=== PATIENT | male | born 1945 | race Caucasian/White ===

== ENCOUNTER 2018-04-19 14:36 | Outpatient (CLI) | payer MEDICARE ==
--- NOTE | 2018-04-20 11:24 | Ultrasound Report ---
Reason: LOCALIZED SWELLING, MASS LUMP HEAD Procedure Date: 04/19/2018 Accession Number: [id number] / [id number] Procedure: US - Head or Neck Soft Tissue CPT Code: FULL RESULT: EXAM: NECK ULTRASOUND EXAM DATE: 04/19/2018 03:22 PM. CLINICAL HISTORY: Localized swelling, mass lump head. COMPARISON: None. TECHNIQUE: Real-time sonographic imaging was performed by the lithographic plate maker utilizing color-flow. Multiple branch customer service representative static images were saved for review. FINDINGS: Palpable soft tissue abnormality posterior to right ear is noted with elongated appearance. This lesion measures 4.8 cm transverse by 4.4 cm craniocaudal. The AP dimension either measures 1.3 or 2.6 cm. Bulldogger measured AP dimension as 2.6 cm; however, there is a bright echogenic band that could create mirror image artifact, falsely doubling AP dimension. IMPRESSION: 1. 4.8 cm heterogeneous solid soft tissue lesion corresponds to palpable abnormality posterior to right ear. The AP dimension of lesion either measures 2.6 cm; or 1.3 cm with mirror image artifact. Appearance is not typical for a simple cyst. Question lipoma or other soft tissue mass. Consider further characterization with CT or MRI versus tissue sampling. RADIA
== END 2018-04-19 14:37 | disposition home or self-care (01) ==
LOC: DI 14:36
PROVIDERS: ATTEND Nurse Practitioner Family
DX: R22.0 Localized swelling, mass and lump, head (principal)
CPT/HCPCS: 76536

== ENCOUNTER 2018-05-04 11:00 | Outpatient (CLI) | payer MEDICARE ==
--- NOTE | 2018-05-04 16:49 | CT Report ---
Reason: LOCALIZED SWELLING,MASS AND LUMP HEAD Procedure Date: 05/04/2018 Accession Number: [id number] / [id number] Procedure: CT - Head W/O CPT Code: FULL RESULT: EXAM: CT HEAD EXAM DATE: 05/04/2018 11:41 AM. CLINICAL HISTORY: Localized swelling, mass and lump on head. COMPARISON: HEAD OR NECK SOFT TISSUE 04/19/2018 3:06 PM. TECHNIQUE: Multiaxial CT images were obtained from the foramen magnum to the vertex. Reformats: Sagittal and coronal. IV contrast: None. In accordance with CT protocol optimization, one or more of the following dose reduction techniques were utilized for this exam: automated exposure control, adjustment of mA and/or KV based on patient size, or use of iterative reconstructive technique. FINDINGS: Parenchyma: No intraparenchymal hemorrhage. No evidence of mass, midline shift, or CT findings of infarction. Georges-white differentiation is distinct. Extraaxial Spaces: Normal for age. No subdural or epidural collections identified. Ventricles: Normal in size and position. Sinuses and Orbits: Imaged paranasal sinuses, orbits, and mastoids show no significant abnormality. Bones: No evidence of fracture or calvarial defect. Other: There is a well-circumscribed fat density mass of the right posterior scalp measuring 37 x 32 x 14 mm (AP by SI by Mediolateral), corresponding to the clinical finding and recent findings at ultrasound. Mass is homogeneously comprised of low density fat consistent with simple lipoma. IMPRESSION: 1. Right scalp lipoma corresponds to the palpable area of concern and recent ultrasound finding. 2. Otherwise normal head CT. RADIA
== END 2018-05-04 11:01 | disposition home or self-care (01) ==
LOC: DI 11:00
PROVIDERS: ATTEND Nurse Practitioner Family
DX: D17.0 Benign lipomatous neoplasm of skin and subcutaneous tissue of head, face and neck (principal)
CPT/HCPCS: 70450

== ENCOUNTER 2019-06-19 14:54 | Outpatient (CLI) | payer MEDICARE ==
--- NOTE | 2019-06-20 11:30 | XRAY Report ---
Reason: CHONDROCOSTA JUNCTION SYNDROME, TIETZE Procedure Date: 06/19/2019 Accession Number: [id number] / [id number] Procedure: XRS - Ribs w/PA Chest LT CPT Code: Final Report FULL RESULT: EXAM: LEFT RIB RADIOGRAPHY EXAM DATE: 06/19/2019 03:15 PM. CLINICAL HISTORY: CHONDROCOSTA JUNCTION SYNDROME, TUCKERE. COMPARISON: None. TECHNIQUE: 1 view of the chest and 2 views of the ribs. FINDINGS: Bones: Normal. No fracture or bone lesion. Lungs: No focal opacities. No pneumothorax. No pleural effusions. Mediastinum: Heart and mediastinal contours are unremarkable. Other: None. IMPRESSION: Normal chest and rib radiography. RADIA
== END 2019-06-19 14:55 | disposition home or self-care (01) ==
LOC: DI.S 14:54
PROVIDERS: ATTEND Nurse Practitioner Family
DX: M94.0 Chondrocostal junction syndrome [Tietze] (principal)

== ENCOUNTER 2020-06-05 08:49 | Outpatient (CLI) | payer MEDICARE ==
[2020-06-05 16:20] LABS: PT - PROTHROMBIN TIME 11.7 secs (9.9-12.6)
[2020-06-05 16:48] LABS: ALBUMIN 4.3 g/dL (3.2-5.5); ALBUMIN/GLOBULIN RATIO 1.5 (1.0-2.2); BILIRUBIN,TOTAL 1.2 mg/dL (0.2-1.0); CALCIUM 9.5 mg/dL (8.5-10.3); CREATININE 0.9 mg/dL (0.6-1.2); TOTAL PROTEIN 7.1 g/dL (6.7-8.2)
[2020-06-05 16:51] LABS: PARTIAL THROMBOPLASTIN TIME 26.6 secs (24.9-33.3)
[2020-06-05 19:16] LABS: HEMOGLOBIN A1c% 6.7 % (4.27-6.07)
== END 2020-06-05 08:50 | disposition home or self-care (01) ==
LOC: LAB.S 08:49
DX: R73.09 Other abnormal glucose (principal); R74.01 Elevation of levels of liver transaminase levels
CPT/HCPCS: 36415; 80053; 83036; 85610; 85730

== ENCOUNTER 2021-08-27 11:32 | Outpatient (CLI) | payer MEDICARE ==
[2021-08-27 15:26] LABS: AMYLASE 59 U/L (28-100); LIPASE 39 U/L (22-51)
== END 2021-08-27 11:33 | disposition home or self-care (01) ==
LOC: LAB.S 11:32
PROVIDERS: ATTEND Family Medicine
DX: K52.9 Noninfective gastroenteritis and colitis, unspecified (principal)
CPT/HCPCS: 36415; 81599; 82150; 82784; 83516; 83690; 84443; 86255

== ENCOUNTER 2021-08-29 11:14 | Outpatient (CLI) | payer MEDICARE ==
[2021-09-05 09:46] LABS: COLLECTION DURATION RANDOM h; TOTAL SPECIMEN WEIGHT 9 g
== END 2021-08-29 11:15 | disposition home or self-care (01) ==
LOC: LAB.S 11:14
PROVIDERS: ATTEND Family Medicine
DX: K52.9 Noninfective gastroenteritis and colitis, unspecified (principal)
CPT/HCPCS: 81599; 82710; 82784; 83516; 83630; 83993; 86255; 87045; 87177; 87209; 87329; 87427; 87449; 87493

== ENCOUNTER 2022-03-27 09:41 | Outpatient (CLI) | payer MEDICARE ==
--- NOTE | 2022-03-27 16:09 | DEXA Report ---
PROCEDURE: Dexa Spine and/or Hip INDICATIONS: SCREENING FOR OSTEOPOROSIS TECHNIQUE: Dual energy x-ray absorptiometry (DXA) was performed on a [employer] System. Regions measur ed are the AP Spine, femoral neck, and if needed forearm. COMPARISON: None. FINDINGS: Lumbar Spine: Bone Mineral Density 1.260 g/cm/cm,T score 0.4. Left Hip: Bone Mineral Density 1.017 g/cm/cm,T score -0.6. Left Femoral Neck: Bone Mineral Density 0.910 g/cm/cm, T score -1.2. (T score greater or equal to -1.0: NORMAL) (T score from -1.1 to -2.4: OSTEOPENIA) (T score less than or equal to -2.5 to: OSTEOPOROSIS) Impression: Osteopenia. Patients with diagnosis of osteoporosis or osteopenia should have regular bone mineral density assess ment. For those eligible for Medicare, routine testing is allowed once every 2 years. Testing frequ ency can be increased for patients who have rapidly progressing disease or for those who are receivin g medical therapy to restore bone mass. Reviewed by: Sj Salgado MD on 03/27/2022 4:08 PM PST Approved by: Sj Salgado MD on 03/27/2022 4:08 PM PST Station ID: [id number]
== END 2022-03-27 09:42 | disposition home or self-care (01) ==
LOC: DI 09:41
PROVIDERS: ATTEND Family Medicine
DX: Z13.820 Encounter for screening for osteoporosis (principal); M85.80 Other specified disorders of bone density and structure, unspecified site

== ENCOUNTER 2023-08-22 04:58 | Emergency (ER) | payer MEDICARE ==
--- NOTE | 2023-08-22 05:09 | ED Physician Documentation ---
PD HPI ABD PAIN - Stated complaint Stated Complaint: RT SIDE PX - Chief complaint Chief Complaint: Abd Pain - History obtained from History obtained from: Patient - Additional information Additional information: HPI from patient. Patient called planes of right-sided abdominal pain, more pronounced in the right upper than lower quadrant. This pain was of gradual onset approximately 3 days ago without inciting event. There are no exacerbating nor ameliorating factors. He denies nausea, vomiting, fever. The only similar pains he had had in the past were associated with gallstones, but his gallbladder has since been removed. The pain is constant and steadily worsening since onset three days ago. Review of Systems Constitutional: denies: Fever, Chills, Sweats GI: reports: Abdominal Pain. denies: Nausea, Vomiting, Constipation, Diarrhea PD PAST MEDICAL HISTORY - Past Medical History Cardiovascular: Hypertension, High cholesterol - Past Surgical History General: Cholecystectomy, Colonoscopy - Present Medications Home Medications: Ambulatory Orders Medication Instructions Recorded Confirmed Ezetimibe [Zetia] 10 mg PO DAILY 10/17/21 08/22/23 Losartan Potassium [Cozaar] 100 mg PO DAILY 10/17/21 08/22/23 Pantoprazole [Protonix] 40 mg PO DAILY 10/17/21 08/22/23 allopurinoL [Zyloprim] 100 mg PO DAILY 10/17/21 08/22/23 Amlodipine Besylate [Norvasc] 2.5 mg PO DAILY 08/22/23 08/22/23 Cyanocobalamin [Vitamin B-12] 500 mcg PO DAILY 08/22/23 08/22/23 Metoprolol Tartrate [Lopressor] 100 mg PO BID 08/22/23 08/22/23 Multivitamin 1 each PO DAILY 08/22/23 08/22/23 Ondansetron Odt [Zofran Odt] 4 mg TL Q6H PRN #14 tablet 08/22/23 Pravastatin [Pravachol] 10 mg PO DAILY 08/22/23 08/22/23 hydroCHLOROthiazide [Hydrodiuril] 12.5 mg PO DAILY 08/22/23 08/22/23 traMADol [Ultram] 50 mg PO Q4-6H PRN #14 tablet 08/22/23 - Allergies Allergies/Adverse Reactions: Allergies Allergy/AdvReac Type Severity Reaction Status Date / Time acetaminophen [From Percocet] Allergy Severe paranoid Verified 08/22/23 05:10 oxycodone [From Percocet] Allergy Severe paranoid Verified 08/22/23 05:10 PD ED PE NORMAL - Vitals Vital signs reviewed: Yes - General General: Alert and oriented X 3, No acute distress, Well developed/nourished - Cardiac Cardiac: RRR, No murmur - Respiratory Respiratory: No respiratory distress, Clear bilaterally - Abdomen Abdomen: Soft, Non distended, Other (mild TTP RLQ without rebound or guarding) - Back Back: No CVA TTP - Derm Derm: No rash - Extremities Extremities: No edema Results - Vitals Vitals: Vital Signs - 24 hr 08/22/23 08/22/23 08/22/23 05:02 06:00 07:40 Temperature 36.4 C L 36.3 C L Heart Rate 53 L 54 L 54 L Respiratory 18 16 16 Rate Blood Pressure 147/71 H 133/88 H 125/78 O2 Saturation 98 97 97 Oxygen O2 Source Room air - Labs Labs: Laboratory Tests 08/22/23 08/22/23 08/22/23 05:25 05:25 06:32 WBC 5.7 RBC 4.36 L Hgb 13.8 L Hct 41.2 L MCV 94.5 H MCH 31.7 H MCHC 33.5 RDW 12.8 Plt Count 204 MPV 10.5 Neut # (Auto) 2.4 Lymph # (Auto) 2.5 Levy # (Auto) 0.6 Eos # (Auto) 0.2 Baso # (Auto) 0.0 Absolute Nucleated RBC 0.00 Nucleated RBC % 0.0 Sodium 135 Potassium 4.0 Chloride 101 Carbon Dioxide 27 Anion Gap 7.0 BUN 26 H Creatinine 1.0 Estimated GFR (MDRD) 72 L Glucose 136 H Calcium 9.9 Total Bilirubin 1.0 AST 32 ALT 31 Alkaline Phosphatase 64 Total Protein 7.4 Albumin 4.5 Globulin 2.9 Albumin/Globulin Ratio 1.6 Lipase 43 Urine Color YELLOW Urine Clarity CLEAR Urine pH 6.0 Ur Specific [place] <=1.005 Urine Protein NEGATIVE Urine Glucose (UA) NEGATIVE Urine Ketones NEGATIVE Urine Occult Blood NEGATIVE Urine Nitrite NEGATIVE Urine Bilirubin NEGATIVE Urine Urobilinogen 0.2 (NORMAL) Ur Leukocyte Esterase NEGATIVE Ur Microscopic Review NOT INDICATED Urine Culture Comments NOT INDICATED - Rads (name of study) CT A/P with IV contrast Relevant Findings:: Prelim report reviewed, See rad report PD Medical Decision Making - ED course Complexity details: reviewed results, re-evaluated patient, considered differential, d/w patient ED course: No concerning nor diagnostic findings on CBC, ER abdominal panel, UA. CT A/P has incidental findings but no findings to explain his abdominal pain and tenderness. Incidental findings include adrenal nodule, diverticulosis, hepatic steatosis, and lesion of bladder wall. Results d/w patient. He declined pain medication on initial evaluation but on reevaluation is requesting pain medication. He has multiple allergies including vicodin, and percocet although his listed and reported side effects of these medications is n/v. After further discussion I recommended tramadol; he is not familiar with this medication and is agreeable to rx for this. Prior to d/c he is given 4mg IV morphine and he reported good pain relief with this. He was also given 4mg IV zofran to prophylax against n/v. I have electronically submitted prescriptions for [facility] and [facility]et[facility] in [place]. Return precautions are reviewed prior to d/c. I emphasized the need for follow up with PCP not only to reevaluate his abdominal pain but also to discuss the finding of the bladder lesion on CT scan which might require urology follow up for cystoscopy Departure - Departure Disposition: 01 Home, Self Care Clinical Impression: Abdominal pain Qualifiers: Abdominal location: right lower quadrant Qualified Code(s): R10.31 - Right lower quadrant pain Condition: Good Instructions: ED Abdominal Pain Unkn Cause Male Prescriptions: traMADol [Ultram] 50 mg PO Q4-6H PRN #14 tablet PRN Reason: Pain 5-7 Ondansetron Odt [Zofran Odt] 4 mg TL Q6H PRN #14 tablet PRN Reason: Nausea / Vomiting Comments: There were no concerning nor diagnostic findings on tonight's tests, including the blood tests, urinalysis, and the CT scan of your abdomen and pelvis. There were a few incidental findings on the CT scan such as diverticulosis, enlarged prostate, and a small lesion in your bladder wall. None of the findings on the CT scan would explain your symptoms. Follow-up with your primary care provider, next available appointment, for reevaluation. Return to the emergency department if your symptoms worsen, or if you develop new/concerning signs/symptoms (such as fever, blood in the stool, pain that is not controlled by the prescribed pain medication). I have electronically submitted prescriptions for tramadol (narcotic/opiate pain medication) and ondansetron (antinausea medication) to the [facility] in [place]. Even though it is an incidental finding, the lesion of your bladder wall needs to be further evaluated; you can talk to your primary doctor about referral to a urologist for further testing (cystoscopy). I am prescribing a short course of narcotic pain medication for you. These are potentially dangerous and addictive medications that should be used carefully. These medications may constipate you. Take an fkrr-zke-icoylww stool softener (docusate) twice daily with plenty of water while taking these medications. If you go 24 hours without a bowel movement, take mwdb-yxy-exewhlo miralax, per package instructions. Do not drink or drive while taking these medications. If you received narcotic or sedating medications while in the emergency department, do not drive for 24 hours. Store this medication in a safe, secure place and out of reach of children. It is a violation of federal law to give or sell this medication to another person or to use in a manner other than prescribed. The ED will not refill narcotic prescriptions, including prescriptions lost or stolen. To dispose of unwanted medications: 1. [facility] at [address] in [place] has a medication drop box. They accept prescription medications (in pill form) Wednesday through Wednesday 9:00 a.m. to 5:00 p.m. 2. The [employer] accepts prescription medications (in pill form only) for disposal year round. Call for more information. 3. Contact the [facility] for the next [facility] sponsored prescription drug collection event. , [phone], or [phone]; Discharge Date/Time: 08/22/23 08:09
[2023-08-22 05:31] LABS: BASOPHILS % (AUTO) 0.7 %; EOSINOPHILS # (AUTO) 0.2 10^3/uL (0.0-0.7); EOSINOPHILS % (AUTO) 3.5 %; HCT - HEMATOCRIT 41.2 % (42.0-52.0); HGB - HEMOGLOBIN 13.8 g/dL (14.0-18.0); LYMPHOCYTES # (AUTO) 2.5 10^3/uL (1.5-3.5); LYMPHOCYTES % (AUTO) 43.6 %; MEAN CORPUSCULAR HEMOGLOBIN 31.7 pg (27.0-31.0); MEAN CORPUSCULAR HGB CONC 33.5 g/dL (32.0-36.0); MEAN CORPUSCULAR VOLUME 94.5 fL (80.0-94.0); MEAN PLATELET VOLUME 10.5 fL (7.4-11.4); MONOCYTES # (AUTO) 0.6 10^3/uL (0.0-1.0); MONOCYTES % (AUTO) 10.6 %; NEUTROPHILS # (AUTO) 2.4 10^3/uL (1.5-6.6); NEUTROPHILS % (AUTO) 41.4 %; PLT - PLATELET COUNT 204 10^3/uL (130-450); RED BLOOD COUNT 4.36 10^6/uL (4.70-6.10); RED CELL DISTRIBUTION WIDTH 12.8 % (12.0-15.0); WHITE BLOOD COUNT 5.7 x10^3/uL (4.8-10.8)
[2023-08-22 05:49] LABS: ALBUMIN 4.5 g/dL (3.2-5.5); ALBUMIN/GLOBULIN RATIO 1.6 (1.0-2.2); CALCIUM 9.9 mg/dL (8.5-10.3); TOTAL PROTEIN 7.4 g/dL (6.4-8.9)
[2023-08-22] MEDS ORDERED: iohexoL-300 100 ML VIAL ONE (06:05)
[2023-08-22 06:17] VITALS: O2SAT 97
[2023-08-22] MEDS: iohexoL-300 100 ML VIAL IVP ONE (06:38)
[2023-08-22 07:13] LABS: BILIRUBIN,URINE NEGATIVE (NEGATIVE); GLUCOSE, URINE (UA) NEGATIVE (NEGATIVE); KETONES,URINE (UA) NEGATIVE (NEGATIVE); LEUKOCYTE ESTERASE, URINE NEGATIVE (NEGATIVE); NITRITE,URINE NEGATIVE (NEGATIVE); OCCULT BLOOD,URINE NEGATIVE (NEGATIVE); PROTEIN,URINE NEGATIVE (NEGATIVE); UROBILINOGEN,URINE 0.2 (NORMAL) E.U./dL (NORMAL)
[2023-08-22 07:20] LABS: CLARITY,URINE CLEAR (CLEAR)
[2023-08-22 07:42] VITALS: BP 125/78
[2023-08-22] MEDS: ONDANSETRON 4 MG/2 ML VIAL IVP STA (07:49)
[2023-08-22] MEDS: MORPHINE 2 MG/ML CARPUJECT IVP STA (07:50)
--- NOTE | 2023-08-22 10:12 | CT Report ---
PROCEDURE: CT abdomen and pelvis with contrast INDICATIONS: abdominal pain TECHNIQUE: Helical axial CT of the abdomen and pelvis was obtained after intravenous contrast adminis tration and reformatted in multiple planes. Radiation dose reduction was achieved using automated exp osure control or adjustment of mA and/or kV according to patient size. COMPARISON: 01/31/2016 FINDINGS: Lower thorax: The lung bases are clear. Heart size normal. Dense coronary artery vascular calcificat ions No hiatal hernia. Moderate fecal debris throughout the colon. Liver: Hepatic parenchyma is diffusely decreased in attenuation without focal mass lesion. Biliary system: Cholecystectomy Pancreas: Unremarkable without mass or inflammation evident. Spleen: Normal in size and density. Adrenals: Small 1 cm left adrenal nodule is stable from prior exam Reproductive system: Prostate is enlarged Urinary system: Normal renal size and attenuation. No renal calculi, hydronephrosis, or solid mass p resent. Focal bladder wall thickening with enhancement noted near the dome of the bladder measuring approximate 2.0 x 0.3 cm Gastrointestinal system: The bowel appears unremarkable with no evidence of bowel obstruction or inf lammation. The stomach appears unremarkable. Multiple diverticuli arise from the sigmoid colon Appendix: No findings to suggest acute appendicitis. Peritoneal spaces: No mesenteric or retroperitoneal adenopathy. No free air. No free fluid. Vasculature: The IVC, aorta and iliac vasculature are unremarkable. Abdominal wall: Abdominal wall is intact without evidence of ventral or inguinal hernias. Musculoskeletal: Normal bone mineralization. No acute fractures. Instrumented lower lumbar spine an d interbody fusion. Degenerative disc disease and arthropathy present. IMPRESSION: Focal bladder wall thickening with enhancement. Consider urology consult and/or cystoscopy to assess for underlying neoplasm. Additional chronic findings as above. Note: This final report is concordant with the preliminary after-hours interpretation provided by [facility], [facility] Reviewed by: Kieran Wise MD on 08/22/2023 9:10 AM ZAIDA Approved by: Kieran Wise MD on 08/22/2023 9:10 AM AKCARMELO Station ID: [id number]
== END 2023-08-22 08:09 | disposition home or self-care (01) ==
LOC: ED 04:58
DX: R10.31 Right lower quadrant pain (principal); I10 Essential (primary) hypertension; E78.00 Pure hypercholesterolemia, unspecified; Z79.899 Other long term (current) drug therapy
CPT/HCPCS: 36415; 74177; 80053; 81003; 83690; 85025; 96374; 96375; 99284; Q9967; 81001; 87086

== ENCOUNTER 2023-08-25 08:00 | Outpatient (CLI) | payer MEDICARE ==
--- NOTE | 2023-08-25 09:45 | XRAY Report ---
PROCEDURE: Thoracic Spine 3V INDICATIONS: THORACIC BACK PAIN TECHNIQUE: 3 views of the thoracic spine were acquired. COMPARISON: None. FINDINGS: Bones: No fractures or dislocations. No suspicious bony lesions. 12 pairs of ribs are noted, and a ppear intact where visualized. Degenerative changes of the thoracic spine with disc height loss, deg enerative endplate changes and marginal spurring. Soft tissues: No paravertebral stripe thickening. IMPRESSION: Degenerative changes of the thoracic spine. No vertebral body compression deformities. Reviewed by: Robbin Chaney MD on 08/25/2023 9:43 AM PDT Approved by: Robbin Chaney MD on 08/25/2023 9:43 AM PDT Station ID: [id number]
== END 2023-08-25 23:59 | disposition home or self-care (01) ==
LOC: DI.S 08:00
PROVIDERS: ATTEND Emergency Medicine
DX: M47.814 Spondylosis without myelopathy or radiculopathy, thoracic region (principal)

== ENCOUNTER 2023-10-16 12:55 | Outpatient (CLI) | payer MEDICARE | END 2023-10-16 12:56 | disposition home or self-care (01) | LOC: RT 12:55 | PROVIDERS: ATTEND Urology | DX: Z01.818 Encounter for other preprocedural examination (principal) | CPT/HCPCS: 93005 ==